=== PATIENT | female | born 1995 | race Caucasian/White ===

== ENCOUNTER 2016-10-25 07:27 | Day surgery (SDC) | payer MEDICAID ==
[~2016-10-25 07:27] MED LIST: PROPOFOL INJ 200 MG/20 ML VIAL IV ONE
[2016-10-25 09:24] VITALS: BP 108/70
--- NOTE | 2016-10-25 13:06 | Operative Report ---
Operative Report DATE OF SURGERY: 10/25/16 Operative Report: The risks, benefits and alternatives of the procedure including risks of bleeding, perforation requiring surgery are discussed with the patient's caregiver in detail and informed consent is obtained. Patient is taken back to the endoscopy suite. She is placed in the left lateral decubital position. An IV is then inserted and propofol administration is performed. Timeout is called. A rectal examination was done which did not reveal any masses, tears or fissures. An Olympus videoscope was inserted into the patient's rectum. Keeping the lumen in site at all times the scope was then gradually advanced all the way to the cecum. The cecum was identified by the usual anatomical landmarks of the ileocecal valve as well as the appendiceal office. Photodocumentation is obtained. Prep is reasonably good. The scope was then sequentially pulled back via the rest segments of the colon including the ascending colon, hepatic flexure, transverse colon, splenic flexure, descending colon and finally into the rectosigmoid colon. Retroflexion maneuvers performed. Intubation of the terminal ileum is done. PREOPERATIVE DIAGNOSIS: Change in bowel habits rule out obstruction POSTOPERATIVE DIAGNOSIS: Mild terminal ileitis status post biopsy rule out Crohn 's disease OPERATION: Colonoscopy with biopsy SURGEON: MARGARET BUSBY ANESTHESIA: LMAC TISSUE REMOVED OR ALTERED: Terminal ileum specimens obtained COMPLICATIONS: None. ESTIMATED BLOOD LOSS: none. INTRAOPERATIVE FINDINGS: Normal colon without any masses, AVMs, diverticulosis. No internal hemorrhoids. PROCEDURE: Patient tolerated the procedure well. No immediate postprocedure complications are noted. Patient is discharged in good condition. Patient does have a 2-3 week follow-up to discuss findings. Patient is instructed to call the office or proceed to the emergency room after any further problems or questions. We'll await on biopsies. Discharge date 10/25/2016. Discharge diet: Regular. Discharge activity: Regular.
== END 2016-10-25 09:20 | disposition home or self-care (01) ==
LOC: END 07:27
PROVIDERS: ATTEND Internal Medicine Gastroenterology
PROC: 0DBB8ZX Excision of Ileum, Via Natural or Artificial Opening Endoscopic, Diagnostic (ICD-10-PCS; principal; 2016-10-25 08:30)
DX: K52.9 Noninfective gastroenteritis and colitis, unspecified (principal); J45.909 Unspecified asthma, uncomplicated; Z79.899 Other long term (current) drug therapy; Z79.51 Long term (current) use of inhaled steroids; Z88.8 Allergy status to other drugs, medicaments and biological substances
CPT/HCPCS: 45380; 88305 ×2; J2704; 810